=== PATIENT | male | born 1945 | race Caucasian/White ===

== ENCOUNTER 2021-03-04 09:42 | Observation (INO) | payer OTHER, BC ==
[2021-03-04] MEDS ORDERED: SODIUM CHLORIDE 1,000 ML IV STA ×2 (10:07→10:41)
[2021-03-04] MEDS ORDERED: dilTIAZem HCL 50 MG/10 ML - 10 ML VIAL IVPUSH ONE (10:07)
[2021-03-04] MEDS ORDERED: dilTIAZem HCL 125 MG/25 ML - 25 ML VIAL ONE (10:12)
[2021-03-04] MEDS ORDERED: dilTIAZem HCL 60 MG TABLET PO ONE (10:42)
[2021-03-04 10:44] LABS: ACTIVATED PTT 34.3 SECONDS (25.2-36.5)
[2021-03-04] MEDS ORDERED: dilTIAZem HCL 30 MG TABLET ONE (10:48)
[2021-03-04 10:49] LABS: ALBUMIN 3.9 g/dl (3.4-5.0); BILIRUBIN,TOTAL 0.8 mg/dl (0.2-1); CALCIUM 8.3 mg/dl (8.5-10); CREATININE 0.6 mg/dl (0.55-1.3); INR 1.29 (0.82-1.09); MAGNESIUM 1.8 mg/dL (1.8-2.4); PROTHROMBIN TIME (PATIENT) 14.3 SEC (10.2-13.0); TOT PROT 6.2 g/dl (6.4-8.2)
[2021-03-04 13:03] LABS: BASO % 0.4 % (0-2.0); EOS % 0.2 % (0-4.5); HEMATOCRIT 35.7 % (35.4-49); HEMOGLOBIN 12.3 GM/dL (11.7-16.9); LYMPH % 16.7 % (8-40); MCH 34.9 pg (25.7-33.7); MCHC 34.4 g/dl (32.0-35.9); MEAN CELL VOLUME 101.4 fl (80-96); MEAN PLT VOLUME 9.1 fl (7.5-11.1); MONO % 6.8 % (3.8-10.2); NEUT % 75.9 % (42.8-82.8); PLATELET COUNT 239 10^3/uL (134-434); RBC 3.52 M/mm3 (4.00-5.60); RDW 14.3 % (11.9-15.9)
[2021-03-04] MEDS ORDERED: MAGNESIUM SULF 50% (8.12 MEQ/2 ML-1 GM VIAL) IVPB ONE (14:07)
[2021-03-04] MEDS ORDERED: MAGNESIUM SULFATE IN WATER 2 GM/50 ML IVPB IVPB ONE (14:15)
[2021-03-04] MEDS ORDERED: POTASSIUM CHLORIDE TABS 20 MEQ TABLET.ER (FP) PO ONE (15:00)
[2021-03-04 15:38] VITALS: BMI 26.9
[2021-03-04] MEDS: dilTIAZem HCL 60 MG TABLET PO SCH ×2 (17:23)
[2021-03-04] MEDS: APIXABAN 5 MG TABLET PO SCH (21:24)
[2021-03-05] MEDS: dilTIAZem HCL 60 MG TABLET PO SCH ×2 (06:58)
[2021-03-05 08:26] LABS: ALBUMIN 3.7 g/dl (3.4-5.0); BILIRUBIN,TOTAL 1.1 mg/dl (0.2-1); CALCIUM 8.6 mg/dl (8.5-10); CREATININE 0.7 mg/dl (0.55-1.3); MAGNESIUM 1.9 mg/dL (1.8-2.4); TOT PROT 5.7 g/dl (6.4-8.2)
[2021-03-05 09:27] LABS: BASO % 0.5 % (0-2.0); HEMATOCRIT 33.9 % (35.4-49); HEMOGLOBIN 11.7 GM/dL (11.7-16.9); LYMPH % 29.7 % (8-40); MCH 35.1 pg (25.7-33.7); MCHC 34.4 g/dl (32.0-35.9); MONO % 10.1 % (3.8-10.2); NEUT % 58.7 % (42.8-82.8); PLATELET COUNT 221 10^3/uL (134-434); RBC 3.33 M/mm3 (4.00-5.60); WHITE BLOOD COUNT 5.5 K/mm3 (4.0-10.0)
[2021-03-05] MEDS ORDERED: MESALAMINE 0.375 GM PO SCH (10:00)
[2021-03-05] MEDS: APIXABAN 5 MG TABLET PO SCH (10:10)
[2021-03-05 11:17] VITALS: BP 121/57; PULSE 58; TEMP 98.8
== END 2021-03-05 13:56 | disposition home or self-care (01) ==
LOC: FER 09:42 → FM/S 11:35 → INTOOBSV 11:35
PROVIDERS: ADMIT Internal Medicine; ATTEND Nurse Practitioner Acute Care
PROC: 3E033GC Introduction of Other Therapeutic Substance into Peripheral Vein, Percutaneous Approach (ICD-10-PCS; principal; 2021-03-04)
DX: I48.19 Other persistent atrial fibrillation (principal); R00.2 Palpitations; K51.90 Ulcerative colitis, unspecified, without complications; Z79.01 Long term (current) use of anticoagulants
CPT/HCPCS: 36415; 71045-TC-FY; 80053; 82550; 83735; 83880; 84443; 84484; 85025; 85610; 85730; 93005; 96361; 96365; 96375; 97116-GP; 97162-GP; 99285-25; C9803; G0378; U0003; U0005

== ENCOUNTER 2023-04-25 12:15 | Emergency (ER) | payer OTHER, BC ==
[2023-04-25] MEDS ORDERED: SODIUM CHLORIDE 1,000 ML IV STA ×2 (12:37→14:20)
[2023-04-25 12:39] VITALS: BP 128/74; PULSE 86; RESP 18; TEMP 97.8; BMI 25.8
[2023-04-25 12:55] LABS: INR 1.55 (0.83-1.09); PROTHROMBIN TIME (PATIENT) 17.9 SEC (9.7-13.0)
[2023-04-25 13:01] LABS: HEMATOCRIT 34.6 % (35.4-49); HEMOGLOBIN 11.9 G/dL (11.7-16.9); MCH 35.4 pg (25.7-33.7); MCHC 34.4 g/dl (32.0-35.9); MEAN CELL VOLUME 103.1 fl (80-96); MEAN PLT VOLUME 9.1 fl (7.5-11.1); PLATELET COUNT 267.1 10^3/uL (134-434); RBC 3.36 10^6/uL (4.00-5.60); RDW 15.7 % (11.9-15.9); WHITE BLOOD COUNT 11.2 10^3/uL (4.0-10.8)
[2023-04-25 13:05] LABS: ALBUMIN 4.1 g/dl (3.4-5.0); CALCIUM 8.4 mg/dl (8.5-10.1); CREATININE 0.6 mg/dl (0.6-1.3); POTASSIUM 3.9 mmol/L (3.5-5.1); TOT PROT 5.8 g/dl (6.4-8.2)
[2023-04-25 13:22] LABS: PLATELET ESTIMATE ADEQUATE
[2023-04-25] MEDS ORDERED: LOPERAMIDE HCL 2 MG CAPSULE PO ONE (14:21)
[2023-04-25] MEDS ORDERED: LOPERAMIDE HCL 2 MG CAPSULE ONE (14:23)
== END 2023-04-25 15:40 | disposition home or self-care (01) ==
LOC: FER 12:15
PROC: 3E0337Z Introduction of Electrolytic and Water Balance Substance into Peripheral Vein, Percutaneous Approach (ICD-10-PCS; principal; 2023-04-25)
PROC: 3E0337Z Introduction of Electrolytic and Water Balance Substance into Peripheral Vein, Percutaneous Approach (ICD-10-PCS; 2023-04-25)
DX: R19.7 Diarrhea, unspecified (principal); R55 Syncope and collapse; E87.1 Hypo-osmolality and hyponatremia; Z20.822 Contact with and (suspected) exposure to COVID-19
CPT/HCPCS: 0241U-QW; 36415; 70450-TC; 70486-TC; 71045-TC-FY; 72125-TC; 80053; 81003; 82570; 83690; 84156; 84300; 84484; 85027; 85610; 93005; 99285-25